=== PATIENT | male | born 1965 ===

== ENCOUNTER → 2018-08-19 21:23 | Outpatient (REF) | payer OTHER, SELFPAY ==
[2018-08-19 22:25] LABS: Add Manual Diff / Slide Review NO; Basophils Percent Auto 0.3 % (0-2); Eosinophils Percent Auto 1.7 % (2-4); Hematocrit 43.4 % (41-53); Hemoglobin 15.3 g/dL (13.5-17.5); Lymphocytes Percent Auto 22.3 % (25-40); Mean Corpuscular HGB Conc 35.3 % (30-36); Mean Corpuscular Hemoglobin 30.4 PG (26-34); Monocytes Percent Auto 5.6 % (3-14); Neutrophils Absolute Auto 2900 /uL (1500-7000); Neutrophils Percent Auto 70.1 % (50-75); Platelet Count 161 X10^3/uL (150-400); Red Blood Cell Count 5.04 X10^6/uL (4.5-5.9); Red Cell Distribution Width 12.4 % (11.6-14.8); White Blood Cell Count 4.1 X10^3/uL (4.5-11.0)
[2018-08-19 22:35] LABS: Cholesterol 197 mg/dL (140-199); HDL Cholesterol 46 mg/dL (40-60); LDL Cholesterol Calculated 112 mg/dL (<100); Triglycerides 194 mg/dL (35-150)
[2018-08-21 15:41] LABS: Estradiol 19 pg/mL (< 40)
[2018-08-21 16:41] LABS: Sex Hormone Binding Globulin 29 nmol/L (10-50)
[2018-08-22 12:41] LABS: PSA Total 0.58 ng/mL (< 4.01)
[2018-08-23 17:22] LABS: Testosterone Free 116.2 pg/mL (35.0-155.0); Testosterone Total 652 ng/dL (250-1100)
== END ==
LOC: LAB 21:23
PROVIDERS: Visit Provider Naturopath
DX: E29.1 Testicular hypofunction (principal)
CPT/HCPCS: 36415; 80061; 82670; 84153; 84154; 84270; 84402; 84403; 85025